=== PATIENT | male | born 1955 | race Caucasian/White ===

== ENCOUNTER → 2017-01-04 | Outpatient (CLI) | payer OTHER ==
[~2017-01-04] MED LIST: ALBU2.5V5 IH; BENZ200C39 PO; BUPR150T20 PO; DIPH25TA26 PO; HYDR-2762 PO; IPRA3AMP23 IH; MAG355OR12 PO; MELA1TAB11 PO; METF850T2 PO; PANT40GR PO; PHEN14.52 MM; PIOG15TA21 PO; POLY17PO3 PO; PRED5TAB PO; PROM118S2 PO; PYRI100T3 PO
--- NOTE | 2017-01-04 09:24 | RAD ---
Right lower extremity venous duplex study 01/04/2017 Clinical History: Right leg pain and swelling.. Technique: Using a combination of real time ultrasound imaging and color-flow and pulse Doppler imaging techniques along with graded compression and augmentation, duplex evaluation of the deep venous system of the right lower extremity was performed. Multiple images were obtained. Findings: There is no sonographic evidence of deep venous thrombosis involving the visualized deep venous structures of right lower extremity. Impression: Negative study.
== END | disposition home or self-care (01) ==
LOC: US 08:32
PROVIDERS: ATTEND Nurse Practitioner Family
DX: M79.604 Pain in right leg (principal)
CPT/HCPCS: 93971

== ENCOUNTER → 2018-02-07 | Outpatient (CLI) | payer OTHER ==
[~2018-02-07] MED LIST changes: -BENZ200C39 PO; +BENZ200C47 PO; -PIOG15TA21 PO; +PIOG15TA42 PO
== END | disposition home or self-care (01) ==
LOC: SURG 10:16 → EDSEX 10:45
PROVIDERS: ATTEND Anesthesiology Pain Medicine
DX: M47.896 Other spondylosis, lumbar region (principal); E66.9 Obesity, unspecified; E11.9 Type 2 diabetes mellitus without complications; G47.33 Obstructive sleep apnea (adult) (pediatric)
CPT/HCPCS: 99213

== ENCOUNTER 2019-08-13 00:08 | Emergency (ER) | payer OTHER ==
[~2019-08-13] VITALS: Ht 177.8 cm; Wt 127.0 kg
[~2019-08-13 00:08] MED LIST changes: -HYDR-2762 PO; +HYDR-2765 PO; -METF850T2 PO; +METF850T8 PO; +POLY17PO28 PO; -POLY17PO3 PO; -PROM118S2 PO; +PROM118S5 PO
[2019-08-13] MEDS ORDERED: IV NORMAL SALINE 1,000ML 1,000 ML IV ONE ×2 (00:45→01:45)
[2019-08-13 01:17] LABS: BASO # 0.1 x10^3/uL (0.0-0.2); BASO % 1 % (0-3); EOS # 0.4 x10^3/uL (0.0-0.7); EOS % 4 % (0-3); HEMATOCRIT 37.8 % (39.0-53.0); HEMOGLOBIN 12.1 g/dL (13.0-17.5); LYMPH # 0.5 x10^3/uL (1.0-4.8); LYMPH % 5 % (24-48); MEAN CORPUSCULAR HEMOGLOBIN 30 pg (25-35); MEAN CORPUSCULAR HGB CONC 32 g/dL (31-37); MEAN CORPUSCULAR VOLUME 93 fL (79-100); MONO % 12 % (0-9); NEUT # 7.1 x10^3uL (1.8-7.7); NEUT % 79 % (31-73); PLATELET COUNT 192 x10^3/uL (140-400); RED BLOOD COUNT 4.07 x10^6/uL (4.30-5.70); RED CELL DISTRIBUTION WIDTH 13.7 % (11.5-14.5)
--- NOTE | 2019-08-13 01:20 | RAD ---
Indication: Chest pain. TECHNIQUE:Portable AP chest X-ray COMPARISON: None FINDINGS: Heart is normal in size. Lungs are clear. Elevated left hemidiaphragm, stable. No pneumothorax or pleural effusion. Visualized bony thorax within normal limits. IMPRESSION: No acute pulmonary process. Electronically signed by: López Dickens DO (08/13/2019 1:17 AM) [facility]
[2019-08-13 01:30] LABS: ALBUMIN/GLOBULIN RATIO 1.1 (1.0-1.7); CALCIUM 8.1 mg/dL (8.5-10.1); CREATININE 1.3 mg/dL (0.7-1.3); GFR 55.8; POTASSIUM 4.9 mmol/L (3.5-5.1); TOTAL BILIRUBIN 0.3 mg/dL (0.2-1.0); TOTAL PROTEIN 5.8 g/dL (6.4-8.2)
[2019-08-13 01:41] LABS: INFLUENZA A PATIENT NEGATIVE (NEGATIVE); INFLUENZA B PATIENT NEGATIVE (NEGATIVE)
[2019-08-13 02:26] LABS: BILIRUBIN,URINE NEG (NEG); CLARITY,URINE CLEAR; COLOR,URINE YELLOW; GLUCOSE,URINE >=1000 mg/dL (NEG); NITRITE,URINE POS (NEG); UROBILINOGEN,URINE 0.2 mg/dL (0.2 mg/dL)
[2019-08-13 02:27] LABS: BACTERIA,URINE FEW /HPF (0-FEW); SQUAMOUS EPITHELIAL CELL,UR FEW /LPF; WBC,URINE >40 /HPF (0-4)
[2019-08-13] MEDS ORDERED: IV NORMAL SALINE 50ML 50 ML ONE (02:54)
[2019-08-13] MEDS ORDERED: cefTRIAXone SODIUM 1 GM VIAL ONE (02:54)
[2019-08-13 03:29] VITALS: BP 139/87
[2019-08-13] MEDS ORDERED: AMOX1TAB61 PO (04:57)
--- NOTE | 2019-08-13 07:05 | PHYS DOC ---
Past History Past Medical History: Diabetes Additional Past Surgical Histo: BACK, HAND Alcohol Use: None Drug Use: None Adult General Chief Complaint Chief Complaint: CHEST PAIN HPI HPI Patient is a 64-year-old male by medic with history of obstructive sleep apnea who presents with nausea vomiting and sweats awaking him from sleep just prior to ED arrival. Patient denies chest pain palpitations, fever and back pain. States he felt well prior to bedtime. No cough, sore throat, abdominal pain. Denies leg pain or swelling. Patient reports urinary incontinence the past 24 hours which is new. Patient noted be diaphoretic, hypotensive on ED arrival. Initial EKG does not reveal any ST-T wave changes. Blood sugar checked prior to ED arrival was normal. [] Review of Systems Review of Systems Review of symptoms as per history of present illness. All other systems were reviewed and found to be within normal limits, except as documented in this note. Current Medications Current Medications Current Medications Medications (Trade) Dose Ordered Sig/Loretta Start Time Stop Time Status Last Admin Dose Admin Ceftriaxone Sodium 1 gm/ Sodium Chloride 50 ml @ 100 mls/hr 1X ONCE 08/13/19 03:00 08/13/19 03:43 DC 08/13/19 02:58 100 MLS/HR Ceftriaxone Sodium (Rocephin) 1 gm STK-MED ONCE 08/13/19 02:54 08/13/19 02:54 DC Sodium Chloride 50 ml @ As Directed STK-MED ONCE 08/13/19 02:54 08/13/19 02:55 DC Allergies Allergies Allergies Coded Allergies Type Severity Reaction Last Updated Verified No Known Drug Allergies 02/21/14 No Physical Exam Physical Exam Constitutional: Well developed, Ever, pale, acutely ill appearing.. [] HENT: Normocephalic, atraumatic, bilateral external ears normal, oropharynx moist, no oral exudates, nose normal. [] Eyes: PERRLA, EOMI, conjunctiva normal, no discharge. [] Neck: Normal range of motion, no tenderness, supple, no stridor. [] Cardiovascular:Heart rate regular rhythm, no murmur [] Lungs & Thorax: Bilateral breath sounds clear to auscultation [] Abdomen: Bowel sounds normal, soft, no tenderness, no masses, no pulsatile masses. [] Skin: Warm, dry, no erythema, no rash. [] Back: No tenderness, no CVA tenderness. [] Extremities: No tenderness, no cyanosis, no clubbing, ROM intact, no edema. [] Neurologic: Alert and oriented X 3, normal motor function, normal sensory function, no focal deficits noted. [] Psychologic: Affect normal, judgement normal, mood normal. [] Current Patient Data Vital Signs Vital Signs Date Time Temp Pulse Resp B/P (MAP) Pulse Ox O2 Delivery O2 Flow Rate FiO2 08/13/19 03:29 76 20 139/87 (104) 98 Room Air 08/13/19 00:09 97.4 Lab Results Laboratory Tests Test 08/13/19 00:28 08/13/19 00:40 08/13/19 00:56 08/13/19 01:54 Glucose (Fingerstick) 269 mg/dL (70-99) H White Blood Count 9.0 x10^3/uL (4.0-11.0) Red Blood Count 4.07 x10^6/uL (4.30-5.70) L Hemoglobin 12.1 g/dL (13.0-17.5) L Hematocrit 37.8 % (39.0-53.0) L Mean Corpuscular Volume 93 fL (79-100) Mean Corpuscular Hemoglobin 30 pg (25-35) Mean Corpuscular Hemoglobin Concent 32 g/dL (31-37) Red Cell Distribution Width 13.7 % (11.5-14.5) Platelet Count 192 x10^3/uL (140-400) Neutrophils (%) (Auto) 79 % (31-73) H Lymphocytes (%) (Auto) 5 % (24-48) L Monocytes (%) (Auto) 12 % (0-9) H Eosinophils (%) (Auto) 4 % (0-3) H Basophils (%) (Auto) 1 % (0-3) Neutrophils # (Auto) 7.1 x10^3uL (1.8-7.7) Lymphocytes # (Auto) 0.5 x10^3/uL (1.0-4.8) L Monocytes # (Auto) 1.0 x10^3/uL (0.0-1.1) Eosinophils # (Auto) 0.4 x10^3/uL (0.0-0.7) Basophils # (Auto) 0.1 x10^3/uL (0.0-0.2) Sodium Level 138 mmol/L (136-145) Potassium Level 4.9 mmol/L (3.5-5.1) Chloride Level 103 mmol/L (98-107) Carbon Dioxide Level 24 mmol/L (21-32) Anion Gap 11 (6-14) Blood Urea Nitrogen 18 mg/dL (8-26) Creatinine 1.3 mg/dL (0.7-1.3) Estimated GFR (Cockcroft-Gault) 55.8 BUN/Creatinine Ratio 14 (6-20) Glucose Level 295 mg/dL (70-99) H Lactic Acid Level 2.2 mmol/L (0.4-2.0) H Calcium Level 8.1 mg/dL (8.5-10.1) L Total Bilirubin 0.3 mg/dL (0.2-1.0) Aspartate Amino Transferase (AST) 12 U/L (15-37) L Alanine Aminotransferase (ALT) 18 U/L (16-63) Alkaline Phosphatase 60 U/L (46-116) Troponin I Quantitative < 0.017 ng/mL (0-0.055) ZY-Vtz-G-Type Natriuretic Peptide 101 pg/mL (0-124) Total Protein 5.8 g/dL (6.4-8.2) L Albumin 3.0 g/dL (3.4-5.0) L Albumin/Globulin Ratio 1.1 (1.0-1.7) Influenza Type A (Rapid) Negative (NEGATIVE) Influenza Type B (Rapid) Negative (NEGATIVE) Urine Collection Type Unknown Urine Color Yellow Urine Clarity Clear Urine pH 5.5 Urine Specific [place] <=1.005 Urine Protein Neg (NEG-TRACE) Urine Glucose (UA) >=1000 mg/dL (NEG) Urine Ketones (Stick) Neg mg/dL (NEG) Urine Blood Small (NEG) Urine Nitrite Pos (NEG) Urine Bilirubin Neg (NEG) Urine Urobilinogen Dipstick 0.2 mg/dL (0.2 mg/dL) Urine Leukocyte Esterase Neg (NEG) Urine RBC 6-10 /HPF (0-2) Urine WBC >40 /HPF (0-4) Urine Squamous Epithelial Cells Few /LPF Urine Bacteria Few /HPF (0-FEW) Test 08/13/19 03:57 Lactic Acid Level 2.0 mmol/L (0.4-2.0) EKG EKG [EKG: Normal sinus rhythm, no acute ST-T wave changes.] Radiology/Procedures Radiology/Procedures [Chest x-ray: No acute cardiopulmonary changes] Course & Med Decision Making Course & Med Decision Making Pertinent Labs and Imaging studies reviewed. (See chart for details) [Patient given repeat fluid boluses with stabilization of blood pressure. No chest pain, negative troponin, negative EKG noted. Patient with probable urinary tract infection contributing to current symptoms. Also, the patient does have history of sleep apnea and does not wear BiPAP machine at night. Patient may be Hypoxic or aspirated. Lung sounds are clear. Antibiotics given. Blood pressure improved. Lactic acid normalize. Patient feels] better and requests discharge home. Recommendations are for supportive care, watchful waiting Dragon Disclaimer Dragon Disclaimer This electronic medical record was generated, in whole or in part, using a voice recognition dictation system. Departure Departure: Impression: Primary Impression: Urinary tract infection Disposition: 01 HOME/RESIDENCE PRIOR TO ADM Condition: STABLE Patient Instructions: Urinary Tract Infection, [id number] Additional Instructions: Please increase fluids and take antibiotics as directed. Follow up with your PCP in 1-2 days. Return to the ED if new or concerning symptoms. Scripts Amoxicillin/Potassium Clav (AUGMENTIN 875-125 TABLET) 1 Each Tablet 1 TAB PO BID for 10 Days, #20 TAB 0 Refills Prov: SARA DING DO 08/13/19 SARA DING DO Aug 13, 2019 07:05
--- NOTE | 2019-08-14 04:07 | EKG ---
[address] [address] Test Date: 2019-08-13 Test Time: 00:31:47 Pat Name: PABLO CHRISTIAN Department: Room: Gender: M Certified Technician Specialist: : [id number] Requested By: SARA DING Order Number: [id number] Reading MD: Percy Hu Measurements Intervals [place] Rate: 66 P: 34 UT: 176 QRS: -12 QRSD: 80 T: -1 QT: 380 QTc: 400 Interpretive Statements SINUS RHYTHM LEFTWARD AXIS Electronically Signed On 08-18-2019 15:03:06 [employer] by Percy Hu
== END 2019-08-13 05:04 | disposition home or self-care (01) ==
LOC: ER 00:08
DX: N39.0 Urinary tract infection, site not specified (principal); R11.2 Nausea with vomiting, unspecified; E11.9 Type 2 diabetes mellitus without complications
CPT/HCPCS: 36415; 71045; 80053; 81001; 82947; 83605; 83880; 84484; 85025; 87040; 87804; 93005; 96361; 96365; 99285; J0696; J7030

== ENCOUNTER → 2020-11-22 | Outpatient (CLI) | payer OTHER ==
[~2020-11-22] MED LIST changes: +AMOX1TAB61 PO; -BUPR150T20 PO; +BUPR150T27 PO; -POLY17PO28 PO; +POLY17PO52 PO
--- NOTE | 2020-11-22 09:31 | RAD ---
EXAM: Pelvis and bilateral hips, 4 views. HISTORY: Pain. COMPARISON: None. FINDINGS: Frontal views of the pelvis and frog-leg views of both hips are obtained. There is left hip joint space narrowing with degenerative subchondral sclerosis, subchondral cyst formation and margin al acetabular and femoral head spurring. There is cortical collapse involving the superior articular aspect of the left femoral head. There is mild to moderate marginal spurring involving the right femo ral head. There is degenerative change and mild scoliosis involving the utilized lumbar spine. IMPRESSION: 1. Severe left hip osteoarthritis with associated cortical collapse involving the superior articular aspect of the femoral head. 2. Mild to moderate osteoarthritis involving the right hip. Electronically signed by: Felipa Russell MD (11/22/2020 9:29 AM) [id number]
== END ==
LOC: RAD 09:04
PROVIDERS: ATTEND Family Medicine
DX: M16.0 Bilateral primary osteoarthritis of hip (principal)
CPT/HCPCS: 73521

== ENCOUNTER → 2021-06-06 | Outpatient (CLI) | payer MEDICARE, OTHER ==
--- NOTE | 2021-06-06 14:31 | RAD ---
EXAM: Scrotal sonogram. HISTORY: Testicular swelling. TECHNIQUE: Witt scale and color Doppler sonographic imaging of the scrotum with spectral waveform juancho lysis was performed. COMPARISON: None. FINDINGS: The testes are normal in size. No focal testicular parenchymal lesion is seen. There is nor mal symmetric blood flow within both testes. The epididymides are unremarkable. There is a large righ t hydrocele. There is a left varicocele. There is no inguinal hernia. IMPRESSION: 1. Large right hydrocele. 2. Left varicocele. 3. Unremarkable testes. Electronically signed by: Felipa Russell MD (06/06/2021 2:28 PM) [id number]
== END ==
LOC: US 12:31
PROVIDERS: ATTEND Family Medicine
DX: N43.2 Other hydrocele (principal); I86.1 Scrotal varices; N50.89 Other specified disorders of the male genital organs
CPT/HCPCS: 76870

== ENCOUNTER → 2021-11-24 | Day surgery (SDC) | payer MEDICARE ==
[~2021-11-24] MED LIST changes: +BUPIVACAINE MPF 0.25% 10 ML VIAL. ONE; +DEXAMETHASONE SOD PHOS 10 MG/ML VIAL. ONE; +IOHEXOL 300 MG/ML 50 ML VIAL. ONE; +LIDOCAINE 1% PF 30 ML VIAL. ONE; +methylPREDNISolone ACETATE 80 MG/ML VIAL. ONE
[2021-11-24 09:07] VITALS: BP 136/82
== END | disposition home or self-care (01) ==
LOC: SURG 08:25
PROVIDERS: ATTEND Anesthesiology
DX: M46.1 Sacroiliitis, not elsewhere classified (principal); G47.33 Obstructive sleep apnea (adult) (pediatric); E11.9 Type 2 diabetes mellitus without complications; M47.816 Spondylosis without myelopathy or radiculopathy, lumbar region; M79.10 Myalgia, unspecified site; M96.1 Postlaminectomy syndrome, not elsewhere classified; Z79.899 Other long term (current) drug therapy; Z87.01 Personal history of pneumonia (recurrent)
CPT/HCPCS: A4209; A4657; A4930; G0260; J1040; J3490; Q9967; 27096; G0259; J1100